=== PATIENT | female | born 1975 | race Caucasian/White ===

== ENCOUNTER → 2016-06-25 | Outpatient (CLI) | payer BC ==
[~2016-06-25] MED LIST: CEPHALEXIN500 M1 PO; IBUPROFEN800 MG PO; LOW DOSE ASPIRI81 MG PO; METFORMIN500 MG PO; NEXIUM PO
== END ==
LOC: MC.RAD 11:37
DX: Z12.31 Encounter for screening mammogram for malignant neoplasm of breast (principal)

== ENCOUNTER → 2018-10-06 | Outpatient (CLI) | payer BC | LOC: MC.RAD 07:30 | DX: R22.2 Localized swelling, mass and lump, trunk (principal) | CPT/HCPCS: G0279 ==